=== PATIENT | female | born 1970 | race Caucasian/White ===

== ENCOUNTER → 2023-07-15 | Outpatient (CLI) | payer OTHER ==
--- NOTE | 2023-07-15 15:29 | CT ---
EXAMINATION TYPE: CT wrist RT wo con DATE OF EXAM: 07/15/2023 COMPARISON: None. HISTORY: Intraarticular fx of distal radius. Fall on Wednesday. CT DLP: 265 mGycm Automated exposure control for dose reduction was used. FINDINGS: There is acute comminuted displaced intra-articular fracture of the distal radius with 3 or 4 small f racture fragments abutting the articular surface. There is 4 mm acute avulsion type fracture from the ulnar styloid. Carpal joint spaces are preserved. No additional acute displaced fracture at this level is seen. Mild to moderate narrowing and mild spurring at base of thumb is incidentally noted. [id number] subcutaneous edema over the palmar surface of the level of the proximal carpal bones is seen. IMPRESSION: As above.
== END | disposition home or self-care (01) ==
LOC: RADCTMAIN 14:45
PROVIDERS: ATTEND Orthopaedic Surgery Hand Surgery
DX: S52.611A Displaced fracture of right ulna styloid process, initial encounter for closed fracture (principal); S52.571A Other intraarticular fracture of lower end of right radius, initial encounter for closed fracture; S52.511A Displaced fracture of right radial styloid process, initial encounter for closed fracture; M25.531 Pain in right wrist; W19.XXXA Unspecified fall, initial encounter